=== PATIENT | female | born 1965 | race Caucasian/White ===

== ENCOUNTER 2016-05-21 14:37 | Inpatient (IN) | payer MEDICARE, MEDICAID ==
[~2016-05-21] VITALS: Ht 167.6 cm; Wt 79.8 kg
[2016-05-21] VITALS (7 sets, daily range): BP systolic 139–170; BP diastolic 100–119
[~2016-05-21 14:37] MED LIST: ETOMIDATE 2MG/ML 10ML VIAL IV ONE; SUCCINYLCHOLINE CHLORIDE 200MG/10ML VIAL IV ONE
[2016-05-21] MEDS ORDERED: BUPR1PAT3 TD (14:52)
[2016-05-21] MEDS ORDERED: FLUT16SP15 NS (14:52)
[2016-05-21] MEDS ORDERED: ALPR2TAB2 PO (14:52)
[2016-05-21] MEDS ORDERED: DULO60CA44 PO (14:52)
[2016-05-21] MEDS ORDERED: PREG50CA PO (14:52)
[2016-05-21] MEDS ORDERED: BUPR8TAB3 SL (14:52)
[2016-05-21] MEDS ORDERED: CYCL5TAB PO (14:52)
[2016-05-21] MEDS ORDERED: SODIUM CHLORIDE 0.9% 1,000 ML IV ONE (16:00)
[2016-05-21] MEDS ORDERED: NALOXONE HCL 0.4 MG/ML 1ML VIAL IV ONE (16:00)
[2016-05-21 16:21] LABS: BASOPHILS % 0.4 % (0.0-2.0); HEMATOCRIT. 34.8 % (36.0-48.0); HEMOGLOBIN. 11.3 g/dL (12.0-16.0); LYMPHOCYTES % 22.2 % (20.0-50.0); MEAN CORPUSCULAR HEMOGLOBIN 29.1 pg (28.0-32.0); MEAN CORPUSCULAR HGB CONC 32.4 g/dL (31.0-37.0); MEAN CORPUSCULAR VOLUME 89.6 fL (81.0-99.0); MEAN PLATELET VOLUME 7.8 fl (7.4-10.4); MONOCYTES % 5.7 % (2.0-8.0); NEUTROPHILS % 70.7 % (40.0-76.0); PLATELET 235 x1000/uL (130-400); RED BLOOD CELL COUNT 3.88 mill/uL (4.2-5.4); RED CELL DISTRIBUTION WIDTH 13.9 % (11.6-14.6); WHITE BLOOD COUNT 6.1 x1000/uL (4.5-11.0)
[2016-05-21 16:26] LABS: CALCIUM 8.4 mg/dL (8.5-10.1); CHLORIDE 106 mEq/L (98-107); INDEX HEMOLYSI 3 (1-3); INDEX ICTERIC 1 (1-4); INDEX LIPEMIC 1 (1-3)
[2016-05-21 16:28] LABS: ALBUMIN 2.9 g/dL (3.4-5.0); ANION GAP 8; CARBON DIOXIDE 34 mEq/L (21-32); UREA NITROGEN BLOOD 8 mg/dL (7-21)
[2016-05-21 16:34] LABS: ALANINE AMINOTRANSFERASE 54 IU/L (13-61); eGFR > 60 mL/min (>60)
[2016-05-21 16:35] LABS: NT PRO B-TYPE NATRIURETIC PEP 228 pg/mL (5-125); TROPONIN I < 0.02 ng/mL (0.00-0.04)
[2016-05-21 16:38] LABS: CLARITY URINE CLEAR (CLEAR); COLOR URINE YELLOW (YELLOW); GLUCOSE URINE NEGATIVE (NEGATIVE); KETONES URINE NEGATIVE (NEGATIVE); LEUKOCYTE ESTERASE URINE NEGATIVE (NEGATIVE); NITRITE URINE POSITIVE (NEGATIVE); OCCULT BLOOD URINE 2+ (NEGATIVE); PROTEIN URINE NEGATIVE (NEGATIVE); UROBILINOGEN URINE 0.2 E.U./dL (0.2-1.0)
[2016-05-21 16:51] LABS: *AMPHETAMINES SCREEN URINE NEGATIVE (NEGATIVE); *BARBITURATES SCREEN URINE NEGATIVE (NEGATIVE); *BENZODIAZEPINES SCREEN URINE PRESUMTIVE POSITIVE (NEGATIVE); *COCAINE SCREEN URINE NEGATIVE (NEGATIVE); CANNABINOID URINE SCREEN NEGATIVE (NEGATIVE); ECSTASY MDMA SCREEN URINE NEGATIVE (NEGATIVE); METHADONE URINE SCREEN NEGATIVE (NEGATIVE); OPIATES URINE SCREEN NEGATIVE (NEGATIVE); PHENCYCLIDINE URINE SCREEN NEGATIVE (NEGATIVE)
[2016-05-21 17:05] LABS: BACTERIA URINE 3+; SQUAMOUS EPITHELIAL CELL URINE FEW /lpf (RARE/1+)
[2016-05-21 17:06] LABS: RBC URINE 0-2 /hpf (0-2); WBC URINE 0-2 /hpf (0-2)
[2016-05-21 17:07] LABS: YEAST URINE FEW
[2016-05-21] MEDS ORDERED: LEVOFLOXACIN 500MG PREMIX 100 ML IV ONE (19:15)
[2016-05-21 19:19] LABS: BG BASE EXCESS 3.5 mmol/L (-2.0-2.0); BG CARBOXYHEMOGLOBIN 0.9 % (0.5-1.5); BG DEOXYHEMOGLOBIN 3.9 % (0.0-5.0); BG FRACTION INSPIRED OXYGEN 36; BG HCO3 ACT 32.8 mmol/L (22.0-26.0); BG METHEMOGLOBIN 0.1 % (0.0-1.5); BG OXYGEN SATURATION 96.1 % (92.0-98.5); BG OXYHEMOGLOBIN 95.1 % (94.0-97.0); BG PCO2 78.5 mmHg (35.0-45.0); BG PH 7.239 (7.350-7.450); BG PO2 90.3 mmHg (75.0-100.0); BG SAMPLE SITE LEFT RADIAL; BG TOTAL HEMOGLOBIN 11.5 g/dL (12.0-18.0); BG VENT MODE NASAL CANNULA
[2016-05-21] MEDS ORDERED: SUCCINYLCHOLINE CHLORIDE 200MG/10ML VIAL IV ONE (20:00)
[2016-05-21] MEDS ORDERED: ETOMIDATE 2MG/ML 10ML VIAL IV ONE (20:00)
[2016-05-21] MEDS ORDERED: PROPOFOL 10MG/ML 100ML 100 ML IV ONE ×2 (20:27→20:30)
[2016-05-21] MEDS ORDERED: PROPOFOL 10MG/ML 100ML 100 ML IV SCH (21:30)
[2016-05-21] MEDS ORDERED: GUAIFENESIN 200MG/10ML SUGAR FREE UDC PO PRN (22:30)
[2016-05-21] MEDS ORDERED: ONDANSETRON HCL 4MG/2ML VIAL IV PRN (22:30)
[2016-05-21] MEDS ORDERED: IPRATROPIUM/ALBUTEROL 0.5-3(2.5)MG/3ML NEB INH PRN (22:30)
[2016-05-21] MEDS ORDERED: ACETAMINOPHEN 325MG TABLET PO PRN (22:30)
[2016-05-21] MEDS ORDERED: ACETAMINOPHEN 650MG SUPP PR PRN (22:30)
[2016-05-21] MEDS ORDERED: DIPHENHYDRAMINE 50MG/ML VIAL IV PRN (22:30)
[2016-05-21] MEDS ORDERED: NA PHOS,M-B/NA PHOS,DI-BA ENEMA 118ML PR PRN (22:30)
[2016-05-21] MEDS ORDERED: DOCUSATE SODIUM 100MG CAPSULE PO PRN (22:30)
[2016-05-21] MEDS ORDERED: MAGNESIUM/ALUMINUM HYDROXIDE/SIMETHICONE 30ML UDC PO PRN (22:30)
[2016-05-21] MEDS ORDERED: HYDRALAZINE 20MG/ML VIAL IV PRN (22:45)
[2016-05-21 22:57] LABS: BG BASE EXCESS 6.6 mmol/L (-2.0-2.0); BG CARBOXYHEMOGLOBIN 0.3 % (0.5-1.5); BG DEOXYHEMOGLOBIN 1.4 % (0.0-5.0); BG FRACTION INSPIRED OXYGEN 50; BG HCO3 ACT 30.2 mmol/L (22.0-26.0); BG METHEMOGLOBIN 0.1 % (0.0-1.5); BG OXYGEN SATURATION 98.6 % (92.0-98.5); BG OXYHEMOGLOBIN 98.2 % (94.0-97.0); BG PCO2 39.3 mmHg (35.0-45.0); BG PH 7.503 (7.350-7.450); BG PO2 135.6 mmHg (75.0-100.0); BG SAMPLE SITE RIGHT BRACHIAL; BG TIDAL VOLUME(mL) 450 mL; BG TOTAL HEMOGLOBIN 12.1 g/dL (12.0-18.0); BG VENT MODE VENT - A/C; BG VENT RATE 16 set
[2016-05-21] MEDS: SODIUM CHLORIDE 0.9% 1,000 ML IV SCH (23:35)
[2016-05-21] MEDS: CLONIDINE 0.1MG TABLET PO PRN (23:39)
[2016-05-22] VITALS (70 sets, daily range): BP systolic 74–152; BP diastolic 48–106
[2016-05-22 01:30] LABS: ETHANOL BLOOD < 10 mg/dL
[2016-05-22 04:37] LABS: ACETAMINOPHEN < 2 ug/mL (10-30)
[2016-05-22] MEDS: SODIUM CHLORIDE 0.9% INJ 3ML FLUSH IVF SCH ×3 (05:18→22:29)
[2016-05-22 05:37] LABS: BASOPHILS % 0.1 % (0.0-2.0); EOSINOPHILS % 1.4 % (0.0-5.0); HEMATOCRIT. 34.3 % (36.0-48.0); HEMOGLOBIN. 11.3 g/dL (12.0-16.0); LYMPHOCYTES % 25.4 % (20.0-50.0); MEAN CORPUSCULAR HEMOGLOBIN 29.5 pg (28.0-32.0); MEAN CORPUSCULAR HGB CONC 33.1 g/dL (31.0-37.0); MEAN CORPUSCULAR VOLUME 89.3 fL (81.0-99.0); MEAN PLATELET VOLUME 8.1 fl (7.4-10.4); MONOCYTES % 6.1 % (2.0-8.0); PLATELET 239 x1000/uL (130-400); RED BLOOD CELL COUNT 3.84 mill/uL (4.2-5.4); RED CELL DISTRIBUTION WIDTH 13.8 % (11.6-14.6); WHITE BLOOD COUNT 8.1 x1000/uL (4.5-11.0)
[2016-05-22 05:55] LABS: ALANINE AMINOTRANSFERASE 44 IU/L (13-61); ALBUMIN 2.8 g/dL (3.4-5.0); ANION GAP 13; CARBON DIOXIDE 29 mEq/L (21-32); CHLORIDE 105 mEq/L (98-107); CREATINE KINASE 246 IU/L (26-192); HDL CHOLESTEROL 36 mg/dL (40-59); INDEX HEMOLYSI 1 (1-3); INDEX ICTERIC 1 (1-4); INDEX LIPEMIC 1 (1-3); LDL CHOLESTEROL 136 mg/dL (5-100); TRIGLYCERIDE 210 mg/dL (0-150); TROPONIN I < 0.02 ng/mL (0.00-0.04); UREA NITROGEN BLOOD 5 mg/dL (7-21); eGFR > 60 mL/min (>60)
[2016-05-22 06:08] LABS: PARTIAL THROMBOPLASTIN TIME 28.3 sec (24.0-34.0); PROTHROMBIN TIME 10.5 sec
[2016-05-22] MEDS ORDERED: POTASSIUM CHLORIDE INJ 40 MEQ in DEXT 5% WATER 250 ML IV SCH (08:00)
[2016-05-22] MEDS: PROPOFOL 10MG/ML 100ML 100 ML IV PRN ×3 (08:55→19:56)
[2016-05-22] MEDS: ENOXAPARIN 40MG/0.4ML SYR SUBCUT SCH (09:29)
[2016-05-22] MEDS: PANTOPRAZOLE SODIUM 40 MG/VIAL IV SCH (09:29)
[2016-05-22 15:18] LABS: CREATINE KINASE 122 IU/L (26-192); INDEX HEMOLYSI 1 (1-3); TROPONIN I < 0.02 ng/mL (0.00-0.04)
[2016-05-22] MEDS: SODIUM CHLORIDE 0.9% 1,000 ML IV SCH (19:20)
[2016-05-22] MEDS: THIAMINE HCL 100MG TABLET NG SCH (22:29)
[2016-05-23] VITALS (29 sets, daily range): BP systolic 93–163; BP diastolic 63–115
[2016-05-23] MEDS: PROPOFOL 10MG/ML 100ML 100 ML IV PRN ×2 (00:22→02:04)
[2016-05-23] MEDS: SODIUM CHLORIDE 0.9% INJ 3ML FLUSH IVF SCH ×3 (05:23→22:25)
[2016-05-23] MEDS: PANTOPRAZOLE SODIUM 40 MG/VIAL IV SCH (08:35)
[2016-05-23] MEDS: THIAMINE HCL 100MG TABLET NG SCH ×2 (08:36→17:00)
[2016-05-23] MEDS: ENOXAPARIN 40MG/0.4ML SYR SUBCUT SCH (08:36)
[2016-05-23] MEDS: SODIUM CHLORIDE 0.9% 1,000 ML IV SCH (08:42)
[2016-05-23 12:15] LABS: BASOPHILS % 1.6 % (0.0-2.0); EOSINOPHILS % 2.6 % (0.0-5.0); HEMATOCRIT. 32.5 % (36.0-48.0); HEMOGLOBIN. 10.8 g/dL (12.0-16.0); LYMPHOCYTES % 33.2 % (20.0-50.0); MEAN CORPUSCULAR HEMOGLOBIN 29.9 pg (28.0-32.0); MEAN CORPUSCULAR HGB CONC 33.2 g/dL (31.0-37.0); MEAN CORPUSCULAR VOLUME 90.1 fL (81.0-99.0); MEAN PLATELET VOLUME 8.2 fl (7.4-10.4); MONOCYTES % 5.8 % (2.0-8.0); NEUTROPHILS % 56.8 % (40.0-76.0); PLATELET 209 x1000/uL (130-400); RED CELL DISTRIBUTION WIDTH 14.3 % (11.6-14.6); WHITE BLOOD COUNT 5.5 x1000/uL (4.5-11.0)
[2016-05-23 12:55] LABS: ALANINE AMINOTRANSFERASE 39 IU/L (13-61); ALBUMIN 2.7 g/dL (3.4-5.0); ANION GAP 14; CALCIUM 8.3 mg/dL (8.5-10.1); CARBON DIOXIDE 25 mEq/L (21-32); CHLORIDE 110 mEq/L (98-107); INDEX HEMOLYSI 1 (1-3); INDEX ICTERIC 1 (1-4); INDEX LIPEMIC 1 (1-3); UREA NITROGEN BLOOD 5 mg/dL (7-21); eGFR > 60 mL/min (>60)
[2016-05-23] MEDS: LORAZEPAM 2MG/ML CPJ IV PRN (13:08)
[2016-05-23] MEDS: HALOPERIDOL LACTATE 5MG/ML VIAL IM PRN (18:39)
[2016-05-24] VITALS (25 sets, daily range): BP systolic 126–153; BP diastolic 81–112
[2016-05-24] MEDS: LORAZEPAM 2MG/ML CPJ IV PRN (01:36)
[2016-05-24 06:00] LABS: ANION GAP 10; CARBON DIOXIDE 31 mEq/L (21-32); CHLORIDE 102 mEq/L (98-107); INDEX HEMOLYSI 2 (1-3); INDEX ICTERIC 1 (1-4); INDEX LIPEMIC 1 (1-3); UREA NITROGEN BLOOD 6 mg/dL (7-21); eGFR > 60 mL/min (>60)
[2016-05-24] MEDS: SODIUM CHLORIDE 0.9% INJ 3ML FLUSH IVF SCH ×3 (06:19→22:00)
[2016-05-24] MEDS ORDERED: POTASSIUM CHLORIDE INJ 40 MEQ in DEXT 5% WATER 250 ML IV NR (08:00)
[2016-05-24] MEDS: PANTOPRAZOLE SODIUM 40 MG/VIAL IV SCH (09:00)
[2016-05-24] MEDS: ENOXAPARIN 40MG/0.4ML SYR SUBCUT SCH (09:01)
[2016-05-24] MEDS: THIAMINE HCL 100MG TABLET NG SCH ×2 (09:01→19:38)
[2016-05-24] MEDS: HALOPERIDOL LACTATE 5MG/ML VIAL IM PRN (12:25)
[2016-05-24] MEDS: RISPERIDONE 1MG TABLET PO SCH (20:26)
[2016-05-25] VITALS (36 sets, daily range): BP systolic 105–170; BP diastolic 70–122
[2016-05-25] MEDS: HALOPERIDOL LACTATE 5MG/ML VIAL IM PRN (01:25)
[2016-05-25] MEDS: SODIUM CHLORIDE 0.9% INJ 3ML FLUSH IVF SCH ×3 (06:30→21:18)
[2016-05-25] MEDS: ENOXAPARIN 40MG/0.4ML SYR SUBCUT SCH (08:49)
[2016-05-25] MEDS: PANTOPRAZOLE SODIUM 40 MG/VIAL IV SCH (08:49)
[2016-05-25] MEDS: THIAMINE HCL 100MG TABLET NG SCH ×2 (08:49→18:06)
[2016-05-25] MEDS: CLONIDINE 0.1MG TABLET PO PRN ×2 (08:50→22:20)
[2016-05-25] MEDS: ACETAMINOPHEN 650MG/20.3ML UDC GT PRN ×2 (08:50→15:52)
[2016-05-25] MEDS: LORAZEPAM 2MG/ML CPJ IV PRN (08:50)
[2016-05-25] MEDS: RISPERIDONE 1MG TABLET PO SCH ×2 (08:50→21:17)
[2016-05-25] MEDS: SERTRALINE HCL 25MG TABLET PO SCH (15:52)
[2016-05-25] MEDS: DEXT 5%/0.9% NACL 1,000 ML IV SCH (15:53)
[2016-05-25 16:50] LABS: EOSINOPHILS % 0.5 % (0.0-5.0); HEMATOCRIT. 37.9 % (36.0-48.0); HEMOGLOBIN. 12.4 g/dL (12.0-16.0); LYMPHOCYTES % 16.7 % (20.0-50.0); MEAN CORPUSCULAR HEMOGLOBIN 28.8 pg (28.0-32.0); MEAN CORPUSCULAR HGB CONC 32.8 g/dL (31.0-37.0); MEAN CORPUSCULAR VOLUME 87.7 fL (81.0-99.0); MEAN PLATELET VOLUME 7.5 fl (7.4-10.4); MONOCYTES % 5.4 % (2.0-8.0); NEUTROPHILS % 76.4 % (40.0-76.0); PLATELET 290 x1000/uL (130-400); RED BLOOD CELL COUNT 4.32 mill/uL (4.2-5.4); WHITE BLOOD COUNT 12.4 x1000/uL (4.5-11.0)
[2016-05-25 17:30] LABS: CLARITY URINE CLEAR (CLEAR); COLOR URINE YELLOW (YELLOW); GLUCOSE URINE NEGATIVE (NEGATIVE); KETONES URINE 1+ (NEGATIVE); LEUKOCYTE ESTERASE URINE TRACE (NEGATIVE); NITRITE URINE NEGATIVE (NEGATIVE); OCCULT BLOOD URINE 2+ (NEGATIVE); PROTEIN URINE NEGATIVE (NEGATIVE); SPECIFIC GRAVITY URINE 1.015 (1.005-1.030); UROBILINOGEN URINE 0.2 E.U./dL (0.2-1.0)
[2016-05-25 17:48] LABS: BACTERIA URINE 1+; SQUAMOUS EPITHELIAL CELL URINE FEW /lpf (RARE/1+); WBC URINE 0-2 /hpf (0-2)
[2016-05-25] MEDS: CEFTRIAXONE 1 G PREMIX 50 ML IV SCH (18:06)
[2016-05-25] MEDS: FOLIC ACID 1 MG, THIAMINE HCL 100 MG, MVI, ADULT NO.1 10 ML in DEXTROSE 5% WATER 1,000 ML IV SCH ×4 (18:06)
[2016-05-25] MEDS: DOCUSATE SODIUM 100MG CAPSULE PO SCH (18:06)
[2016-05-25] MEDS ORDERED: LACTULOSE 20G/30ML UDC PO PRN (21:00)
[2016-05-26 04:00] VITALS: BP 132/94
[2016-05-26] MEDS: DEXT 5%/0.9% NACL 1,000 ML IV SCH ×2 (05:28→17:20)
[2016-05-26] MEDS: SODIUM CHLORIDE 0.9% INJ 3ML FLUSH IVF SCH ×3 (05:34→20:30)
[2016-05-26 08:00] VITALS: BP 123/92
[2016-05-26] MEDS: THIAMINE HCL 100MG TABLET NG SCH ×2 (09:10→16:48)
[2016-05-26] MEDS: DOCUSATE SODIUM 100MG CAPSULE PO SCH ×2 (09:10→16:48)
[2016-05-26] MEDS: PANTOPRAZOLE SODIUM 40 MG/VIAL IV SCH (09:10)
[2016-05-26] MEDS: SERTRALINE HCL 25MG TABLET PO SCH (09:10)
[2016-05-26] MEDS: ENOXAPARIN 40MG/0.4ML SYR SUBCUT SCH (09:10)
[2016-05-26] MEDS: RISPERIDONE 1MG TABLET PO SCH ×2 (09:10→20:30)
[2016-05-26 12:00] VITALS: BP 142/121
[2016-05-26 13:07] VITALS: BP 113/74
[2016-05-26 16:00] VITALS: BP 127/86
[2016-05-26] MEDS: CEFTRIAXONE 1 G PREMIX 50 ML IV SCH (17:08)
[2016-05-26] MEDS: FOLIC ACID 1 MG, THIAMINE HCL 100 MG, MVI, ADULT NO.1 10 ML in DEXTROSE 5% WATER 1,000 ML IV SCH ×4 (17:19)
[2016-05-26 20:23] VITALS: BP 131/82
[2016-05-27] VITALS: BP 117/77
[2016-05-27 04:00] VITALS: BP 141/98
[2016-05-27] MEDS: DEXT 5%/0.9% NACL 1,000 ML IV SCH (05:47)
[2016-05-27] MEDS: SODIUM CHLORIDE 0.9% INJ 3ML FLUSH IVF SCH ×2 (05:47→14:25)
[2016-05-27] MEDS ORDERED: RISP1 PO (07:36)
[2016-05-27] MEDS ORDERED: SERT25TA74 PO (07:36)
[2016-05-27] MEDS ORDERED: THIA100T72 NG (07:36)
[2016-05-27 07:59] LABS: BASOPHILS % 0.7 % (0.0-2.0); EOSINOPHILS % 0.3 % (0.0-5.0); HEMATOCRIT. 36.3 % (36.0-48.0); HEMOGLOBIN. 12.1 g/dL (12.0-16.0); LYMPHOCYTES % 11.6 % (20.0-50.0); MEAN CORPUSCULAR HEMOGLOBIN 29.1 pg (28.0-32.0); MEAN CORPUSCULAR HGB CONC 33.2 g/dL (31.0-37.0); MEAN CORPUSCULAR VOLUME 87.7 fL (81.0-99.0); MEAN PLATELET VOLUME 7.1 fl (7.4-10.4); MONOCYTES % 6.9 % (2.0-8.0); NEUTROPHILS % 80.5 % (40.0-76.0); PLATELET 263 x1000/uL (130-400); RED BLOOD CELL COUNT 4.14 mill/uL (4.2-5.4); RED CELL DISTRIBUTION WIDTH 13.7 % (11.6-14.6); WHITE BLOOD COUNT 11.1 x1000/uL (4.5-11.0)
[2016-05-27 08:00] VITALS: BP 135/96
[2016-05-27 08:19] LABS: ALANINE AMINOTRANSFERASE 24 IU/L (13-61); ALBUMIN 3.3 g/dL (3.4-5.0); ANION GAP 13; CALCIUM 9.4 mg/dL (8.5-10.1); CARBON DIOXIDE 28 mEq/L (21-32); CHLORIDE 102 mEq/L (98-107); INDEX HEMOLYSI 1 (1-3); INDEX ICTERIC 1 (1-4); INDEX LIPEMIC 1 (1-3); UREA NITROGEN BLOOD 7 mg/dL (7-21); eGFR > 60 mL/min (>60)
[2016-05-27] MEDS: THIAMINE HCL 100MG TABLET NG SCH (08:36)
[2016-05-27] MEDS: ENOXAPARIN 40MG/0.4ML SYR SUBCUT SCH (08:36)
[2016-05-27] MEDS: RISPERIDONE 1MG TABLET PO SCH (08:36)
[2016-05-27] MEDS: DOCUSATE SODIUM 100MG CAPSULE PO SCH (08:36)
[2016-05-27] MEDS: SERTRALINE HCL 25MG TABLET PO SCH (08:36)
[2016-05-27] MEDS ORDERED: FAMOTIDINE 20MG TABLET PO SCH (09:00)
[2016-05-27 12:00] VITALS: BP 125/93
[2016-05-27 15:39] VITALS: BP 125/93
== END 2016-05-27 16:10 | disposition home or self-care (01) | DRG 917 ==
LOC: EDBD 14:37 → ER 15:12 → MICUSO 19:21 → 7WST 05-25 23:59
PROVIDERS: ADMIT Family Medicine; ATTEND Family Medicine
PROC: 5A1945Z Respiratory Ventilation, 24-96 Consecutive Hours (ICD-10-PCS; principal; 2016-05-21)
PROC: 0BH17EZ Insertion of Endotracheal Airway into Trachea, Via Natural or Artificial Opening (ICD-10-PCS; 2016-05-21)
PROC: 02HV33Z Insertion of Infusion Device into Superior Vena Cava, Percutaneous Approach (ICD-10-PCS; 2016-05-22)
PROC: B548ZZA Ultrasonography of Superior Vena Cava, Guidance (ICD-10-PCS; 2016-05-22)
DX: T48.1X1A Poisoning by skeletal muscle relaxants [neuromuscular blocking agents], accidental (unintentional), initial encounter (principal); J96.02 Acute respiratory failure with hypercapnia; E43 Unspecified severe protein-calorie malnutrition; G92 Toxic encephalopathy; J96.01 Acute respiratory failure with hypoxia; J96.21 Acute and chronic respiratory failure with hypoxia; E87.2 Acidosis; G89.29 Other chronic pain; D64.9 Anemia, unspecified; I10 Essential (primary) hypertension; E78.00 Pure hypercholesterolemia, unspecified; F32.9 Major depressive disorder, single episode, unspecified; Y92.89 Other specified places as the place of occurrence of the external cause; Z87.440 Personal history of urinary (tract) infections; Z68.28 Body mass index [BMI] 28.0-28.9, adult; I50.9 Heart failure, unspecified; I11.0 Hypertensive heart disease with heart failure
CPT/HCPCS: 36415; 36569; 36600; 70450; 71010; 76937; 80048; 80053; 80061; 80305; 80307; 80329; 81001; 82375; 82550; 82805; 83605; 83880; 84478; 84484; 85025; 85610; 85730; 87040; 87070; 87086; 92610; 93005; 94002; 94003; 97116; 97162; 97165; 97530; C1725; C9113; G0482; J0330; J0696; J1200; J1630; J1650; J1956; J2060; J2310; J2704; J3411; J3480; J3490; J7030; J7042; J7060; J7070

== ENCOUNTER 2016-06-11 09:32 | Emergency (ER) | payer MEDICARE, MEDICAID ==
[~2016-06-11] VITALS: Ht 167.6 cm; Wt 70.0 kg
[~2016-06-11 09:32] MED LIST changes: +ALPR2TAB2 PO; +BUPR1PAT3 TD; +BUPR8TAB3 SL; +CYCL5TAB PO; +DULO60CA44 PO; -ETOMIDATE 2MG/ML 10ML VIAL IV ONE; +FLUT16SP15 NS; +PREG50CA PO; +RISP1 PO; +SERT25TA74 PO; -SUCCINYLCHOLINE CHLORIDE 200MG/10ML VIAL IV ONE; +THIA100T72 NG
[2016-06-11] MEDS ORDERED: KETOROLAC 30MG/ML VIAL IV STA (10:52)
[2016-06-11] MEDS ORDERED: SODIUM CHLORIDE 0.9% 1,000 ML IV ONE (10:52)
[2016-06-11 11:24] LABS: BASOPHILS % 0.3 % (0.0-2.0); EOSINOPHILS % 2.8 % (0.0-5.0); HEMATOCRIT. 33.2 % (36.0-48.0); HEMOGLOBIN. 10.9 g/dL (12.0-16.0); LYMPHOCYTES % 21.9 % (20.0-50.0); MEAN CORPUSCULAR HEMOGLOBIN 29.1 pg (28.0-32.0); MEAN CORPUSCULAR HGB CONC 32.8 g/dL (31.0-37.0); MEAN CORPUSCULAR VOLUME 88.7 fL (81.0-99.0); MEAN PLATELET VOLUME 7.6 fl (7.4-10.4); MONOCYTES % 6.9 % (2.0-8.0); NEUTROPHILS % 68.1 % (40.0-76.0); PLATELET 214 x1000/uL (130-400); RED BLOOD CELL COUNT 3.75 mill/uL (4.2-5.4); RED CELL DISTRIBUTION WIDTH 13.7 % (11.6-14.6); WHITE BLOOD COUNT 6.8 x1000/uL (4.5-11.0)
[2016-06-11 11:33] LABS: CHLORIDE 101 mEq/L (98-107); INDEX HEMOLYSI 1 (1-3); INDEX ICTERIC 1 (1-4); INDEX LIPEMIC 1 (1-3)
[2016-06-11 11:41] LABS: ANION GAP 8; CALCIUM 8.3 mg/dL (8.5-10.1); CARBON DIOXIDE 35 mEq/L (21-32); UREA NITROGEN BLOOD 14 mg/dL (7-21); eGFR > 60 mL/min (>60)
[2016-06-11] MEDS ORDERED: OXYCODONE HCL/ACETAMINOPHEN 5/325MG TABLET PO ONE (12:45)
[2016-06-11 14:05] VITALS: BP 122/77
== END 2016-06-11 14:05 | disposition home or self-care (01) ==
LOC: ER 09:47
DX: M54.30 Sciatica, unspecified side (principal); G89.29 Other chronic pain; I10 Essential (primary) hypertension; F32.9 Major depressive disorder, single episode, unspecified; Z87.440 Personal history of urinary (tract) infections; Z79.899 Other long term (current) drug therapy; Z90.89 Acquired absence of other organs; Z96.649 Presence of unspecified artificial hip joint
CPT/HCPCS: 36415; 80048; 85025; 93005; 96361; 96374; 99285; J1885; J7030